=== PATIENT | female | born 1950 | race Caucasian/White ===

== ENCOUNTER 2016-12-14 17:42 | Emergency (ER) | payer BC ==
[~2016-12-14 17:42] MED LIST: ALLEGRA180 PO; AMIT50 PO; B12250T PO; FLONASE NAS; LEXAPRO20 PO; MULTIPLE VIT PO; NYQUIL PO; PEP20 PO; PRINZIDE1 TAB PO; VITC500 PO; XANAX2 MG PO
[2016-12-14 18:58] LABS: BASOPHILS 0.5 %; BASOPHILS ABSOLUTE 0.05 10/3/uL (0.0-0.16); EOSINOPHILS 0.8 %; EOSINOPHILS ABSOLUTE 0.08 10/3/uL (0.0-0.53); ER CBC TAT 0 Hrs 08 Mins; IMMATURE GRANULOCYTES 0.1 %; IMMATURE GRANULOCYTES ABSOLUTE 0.01 10/3/uL (0.0-0.11); MEAN CORPUSCULAR HEMOGLOB 26.2 pg (26.0-34.0); MEAN PLATELET VOLUME 8.9 fL (9.2-13.0); MONOCYTES 14.8 %; MONOCYTES ABSOLUTE 1.45 10/3/uL (0.21-1.20); NEUTROPHILS 36.8 %; PLATELET COUNT 371 10/3/uL (150-400); RBC DISTRIBUTION WIDTH 13.8 % (12.0-16.0); RED CELL COUNT 4.58 10/6/uL (4.0-5.6); WHITE BLOOD CELLS 9.8 10/3/uL (4.5-10.5)
[2016-12-14 19:00] LABS: HEMATOCRIT 37.5 % (36.0-48.0); MANUAL DIFF NO %; MEAN CORPUSCULAR VOLUME 81.9 fL (80-100)
[2016-12-14 19:09] LABS: PARTIAL THROMBO TIME 25.8 SEC (22.5-37.2); PROTIME (NOT ORD) 12.7 SEC (12.0-14.5)
[2016-12-14 19:14] LABS: ALBUMIN 3.3 G/DL (3.5-5.0); CALCIUM, SERUM 9.2 MG/DL (8.5-10.4); CHEST PAIN PROFILE TAT 0 Hrs 24 Mins; CHLORIDE, SERUM 100 MMOL/L (96-112); CREATININE 0.69 MG/DL (0.55-1.02); DIRECT BILIRUBIN 0.1 MG/DL (0.0-0.4); GFR AFRICAN AMERICAN 105 ML/MIN (>=60); GFR NON AFRICAN AMERICAN 91 ML/MIN (>=60); GLUCOSE, SERUM 97 MG/DL (60-99); INDIRECT BILIRUBIN(NOT ORDER) 0.3 MG/DL (0.1-0.9); POTASSIUM, SERUM 3.4 MMOL/L (3.5-5.3); SGOT(AST) 16 U/L (5-40); SGPT(ALT) 16 U/L (5-65); SODIUM, SERUM 137 MMOL/L (135-148); TOTAL BILIRUBIN 0.4 MG/DL (0-1.2); TOTAL PROTEIN 7.1 G/DL (6.0-8.5); TROPONIN I <0.02 NG/ML (<0.05)
[2016-12-14 19:15] LABS: ALKALINE PHOSPHATASE 120 U/L (45-117); BUN (BLOOD UREA NITROGEN) 8 MG/DL (6-23); CO2 (CARBON DIOXIDE) 33 MMOL/L (24-34)
== END 2016-12-14 21:05 | disposition home or self-care (01) ==
LOC: ER 17:42
PROVIDERS: Emergency Medicine
DX: R42 Dizziness and giddiness (principal); R06.00 Dyspnea, unspecified; R53.1 Weakness; I10 Essential (primary) hypertension; G47.30 Sleep apnea, unspecified; K21.9 Gastro-esophageal reflux disease without esophagitis; F32.9 Major depressive disorder, single episode, unspecified; F41.9 Anxiety disorder, unspecified; F17.200 Nicotine dependence, unspecified, uncomplicated; Z88.0 Allergy status to penicillin; Z88.1 Allergy status to other antibiotic agents; Z79.899 Other long term (current) drug therapy
CPT/HCPCS: 70450; 71010; 80048; 80076; 83735; 83880; 84484; 85025; 85610; 85730; 93005; 99285